=== PATIENT | female | born 1935 ===

== ENCOUNTER 2020-03-29 06:00 | Day surgery (SDC) | payer OTHER | END 2020-03-29 10:50 | disposition home or self-care (01) | LOC: AMB-ENDOS 06:00 | PROVIDERS: ATTEND Surgery | DX: K62.89 Other specified diseases of anus and rectum (principal); K57.30 Diverticulosis of large intestine without perforation or abscess without bleeding; Z20.828 Contact with and (suspected) exposure to other viral communicable diseases ==